=== PATIENT | male | born 1990 | race African-American/Black ===

== ENCOUNTER 2022-02-09 13:18 | Emergency (ER) | payer BC ==
[~2022-02-09] VITALS: Ht 170.2 cm; Wt 72.0 kg
[2022-02-09 13:27] VITALS: BP 112/70
[2022-02-09] MEDS ORDERED: IBUPROFEN 600MG TABLET PO STA (13:56)
[2022-02-09] MEDS ORDERED: CYCL5TAB PO (15:27)
[2022-02-09] MEDS ORDERED: IBUP-2030 PO (15:27)
== END 2022-02-09 16:15 | disposition home or self-care (01) ==
LOC: ER 13:18
DX: S16.1XXA Strain of muscle, fascia and tendon at neck level, initial encounter (principal); M25.562 Pain in left knee; M54.50 Low back pain, unspecified; V81 Occupant of railway train or railway vehicle injured in transport accident; Y93.89 Activity, other specified; Y92.488 Other paved roadways as the place of occurrence of the external cause
CPT/HCPCS: 72100; 73562; 93005; 99284